=== PATIENT | male | born 1955 | race Caucasian/White ===

== ENCOUNTER 2018-07-04 10:04 | Observation (INO) | payer OTHER, SELFPAY ==
[2018-07-04 10:05] VITALS: BP 116/64; PULSE 105; RESP 16; TEMP 37.2; O2SAT 98; BMI 27.9
[2018-07-04 11:00] LABS: Bacteria 0 SEEN /hpf (None Seen); Mucous, Urine 0 SEEN /hpf (<or=2+); Red Blood Cells-Urine 0 SEEN /hpf (0-5); Squamous Epithelial Cells - UA 0 SEEN /hpf (0-5)
[2018-07-04 11:05] LABS: Color, Urine Amber (Yellow); Glucose, Dipstick Normal (Normal); Ketone-Dipstick 15 mg/dl (Negative); Leukocyte Esterase-Dipstick 500 /ul (Negative); Nitrite-Dipstick Positive (Negative); Occult Blood-Urine 250 /ul (Negative); Protein-Dipstick 100 mg/dl (Negative); Urine Bilirubin Dipstick 3 mg/dL (Negative); Urine Clarity Cloudy (Clear); Urine Urobilinogen 8 mg/dl (Normal)
[2018-07-04 11:09] LABS: White Blood Cells >100 SEEN /hpf (0-5)
[2018-07-04] MEDS: Ceftriaxone 1 GM/50 ML BAG IV (11:14)
[2018-07-04] MEDS: 0.9% Normal Saline 1,000 ML 1000 ML IV (11:14)
[2018-07-04 11:31] LABS: Absolute Lymphocyte Count 0.53 X10^3/ul (0.83-4.51); Absolute Neutrophil Count 15.3 X10^3/uL (2.0-7.7); Basophil# 0.01 X10^3/uL; Basophil% 0.1 % (0-1); Differential Indicated SCAN CRITERIA MET; Hematocrit 36.2 % (40-54); Hemoglobin 12.1 g/dl (13.0-16.5); Lymphocyte # 0.53 X10^3/ul (4.0); Lymphocyte % 3.2 % (19-41); Mean Corp Hgb Conc 33.4 g/gl (32-36); Mean Corpuscular Hgb 31.7 pg (27.0-32.0); Mean Corpuscular Volume 94.8 fL (80-94); Mean Platelet Vol. 10.1 fl (6.2-12.0); Monocyte# 0.64 X10^3/uL; Monocyte% 3.9 % (0-10); Neutrophil # 15.29 X10^3/uL (2.7-7.7); Neutrophil % 92.5 % (47-70); POSITIVE COUNT NO; POSITIVE DIFFERENTIAL YES; POSITIVE MORPHOLOGY NO; Platelet Count 161 K/mm3 (150-450); RBC Distribution Width SD 43.5 fl (35.1-43.9); Red Blood Count 3.82 M/mm3 (4.6-6.2); White Blood Count 16.5 K/mm3 (4.4-11.0)
[2018-07-04 11:39] LABS: Anion Gap 6 (5-15); BUN 21 mg/dL (7-18); BUN/Creat Ratio 17.9 RATIO (10-20); Calcium,Total 8.6 mg/dL (8.5-10.1); Chloride 104 mmol/L (98-107); Creatinine, Serum 1.17 mg/dL (0.70-1.30); EST Glomerular Filtration Rate 67 mL/min (>60); Est Glom Filt Rate - Afr Amer 81 mL/min (>60); Estimated Creatinine Clearance 70.93 ml/min; Glucose 106 mg/dL (74-106); Potassium 3.9 mmol/L (3.5-5.1); Sodium Level 137 mmol/L (136-145)
[2018-07-04] MEDS: Ondansetron 4 MG/2 ML Vial IV (11:41)
[2018-07-04 11:53] LABS: Lactic Acid 1.1 mmol/L (0.4-2.0)
--- NOTE | 2018-07-04 12:03 | ED.VISSUMM ---
- ER Visit Summary Date of Service: 07/04/18 Chief Complaint: [Dysuria] History of Present Illness: The patient is a 63 M [presents the emergency department with complaint of dysuria that started yesterday morning. Patient vomited ?2. He denies any back pain. Does complain of a headache. Patient had some mild diarrhea the last 2 days. Patient's had fever at home up to 101. Patient was seen at urgent care and referred to the emergency department. Patient had been on amoxicillin for a cough that he had and finished the amoxicillin about a week ago.] Physical Examination: [HEENT-PERRLA, EOMI. Cranial nerves II through XII grossly intact. TMs clear. Mucous membranes moist. No adenopathy. Cardiovascular-regular rate and rhythm without murmur or ectopy Lungs-clear to auscultation, chest wall stable without crepitus or subcu emphysema Abdomen-normoactive bowel sounds, soft, nontender, no rebound or rigidity, no peritoneal signs. No CVA tenderness. Extremities-intact ?4, normal range of motion, normal pulses, atraumatic] Test Results: [CBC with differential obtained showed a white count of 16.5, hemoglobin 12, hematocrit 36, platelets 161. Chemistries unremarkable. BUN was 21 creatinine 1.17. Urinalysis was positive for 500 leukocyte esterase, positive nitrites, greater than 100 WBCs. Urine culture was sent.] Emergency Department Course and Treatment: [Was given a liter normal same fluid bolus. Patient was given Zofran 4 mg IV. Patient was started on Rocephin 1 g IV.] Treatment Plan: [Patient will be admitted as he does meet sepsis criteria] Disposition: [Admit] Impression: [UTI Sepsis] This note was generated with [employer] dictation software. It may contain incorrect words, spelling, and punctuation that were not noted in review of the chart prior to signing ED Disposition - Plan for ED Patient: Chief Complaint: Complaint Referrals: Pato Suarez MD [Primary Care Provider] -
[2018-07-04 12:47] VITALS: BP 121/63; PULSE 98; RESP 18; O2SAT 99
[2018-07-04 13:11] VITALS: BMI 27.9
[2018-07-04 13:12] VITALS: BP 133/68; PULSE 108; RESP 18; TEMP 38.1; O2SAT 97
[2018-07-04 13:14] VITALS: BMI 28.0
--- NOTE | 2018-07-04 13:16 | PCM.HP.STD ---
Problem List (1) Right sided vestibular neuroma Status: Chronic (2) Anxiety Status: Chronic (3) UTI (urinary tract infection) Status: Acute History of Present Illness Date of Admission: 07/04/18 Chief Complaint: Fever with chills and low intact symptoms for few days The patient is a 63 year old M with history of right ear vestibular neuroma for which is a scheduled for gamma knife surgery in [facility] otherwise healthy came to ER with fever, chills, nausea and vomiting and lower urinary tract symptoms for few days. Patient complain of increased frequency, urgency, burning micturition, nocturia for about 2-3 days. He was noticed to have temperature 100.6?F, sinus tachycardia, leukocytosis with left shift but no tachypnea or hypoxia. UA is positive of pyuria, leukocyte esterase and nitrite. Blood cultures and urine culture have been drawn in ER. Patient saw Dr. Santiago in February 2018 for the concern of BPH and he had normal PSA at that time as per the patient and was told prostate is not significantly enlarged on P/R exam. But in our system, there is no recent PSA, last one October 2015 PSA was 3.45. He did not had recent urology procedure, Khan catheterization. Past Medical History Past Medical History (Chronic Problems): Chronic Problems Right sided vestibular neuroma (Chronic) Anxiety (Chronic) Allergies No Known Allergies Allergy (Verified 07/04/18 10:05) Home Medications: Ambulatory Orders Medication Instructions Recorded Lorazepam [Ativan] 0.5 mg PO PRN PRN 07/04/18 busPIRone [Buspar] 15 mg PO QHS 07/04/18 Smoking Status: Never smoker - *Family History Paternal History Items: No pertinent history Review of Systems Constitutional: Reports: Chills, Fever, Malaise, Weakness, Fatigue HEENT: Reports: Difficulty Hearing, Hearing Changes, - - Tinnitus. Denies: Head Aches, Sinus Congestion, Sinus Drainage Cardiovascular: Denies: Chest Pain, Palpitations Respiratory: Denies: Cough, Shortness of breath at rest, Sputum production Gastrointestinal: Denies: Abdominal Pain, Nausea, Vomiting Genitourinary: Reports: Dysuria, Frequency, Hesitancy, Nocturia, Urgency Musculoskeletal: Denies: Joint Pain, Joint Tenderness Skin: Denies: Rash, Wounds Neurological: Denies: Numbness, Tingling, Focal weakness Psychiatric: Denies: Anxiety, Depression, Homicidal Ideations, Suicidal Ideations Hematologic/ Lymphatic: Denies: Easy Bruising, Easy Bleeding VTE Information - Inpt Only VTE Present on Admission: No VTE Mechan Device Prophylaxis: None VTE Pharm Prophylaxis ordered?: Yes Patient Problems: Active and Suspected Problems UTI (urinary tract infection) (Acute) - Physical Exam General: Alert, Oriented x3, Cooperative HEENT: Atraumatic, PERRLA, EOMI, Normocephalic, - - Patient has difficulty in speech quality differentiation, tinnitus because of vestibular neuroma Neck: Supple, No JVD, Negative Carotid Bruits Lungs: Clear to auscultation, Normal air movement, No rhonchi, No wheeze, No rales Cardiovascular: Regular rate, Regular Rhythm, Normal S1, Normal S2, No murmurs Abdomen: Bowel Sounds Present, Soft, Non Tender, Non-Distended Extremities: No edema, Capillary Refill Less than 3 Seconds Skin: No rashes, No breakdown Musculoskeletal: No Tenderness to Palpation of Joints or Extremities Neurological: Cranial nerves II-XII grossly intact Psych/Mental Status: Normal Affect, Appropriate Vital Signs Temp Pulse Resp BP Pulse Ox 100.6 F H 108 H 18 133/68 H 97 07/04/18 13:12 07/04/18 13:12 07/04/18 13:12 07/04/18 13:12 07/04/18 13:12 Oxygen Delivery Method Room Air Weight: 206 lb 2.115 oz Body Mass Index (BMI) 27.9 Laboratory Tests Past 24 Hrs 07/04/18 07/04/18 07/04/18 10:26 10:26 10:26 WBC 16.5 H RBC 3.82 L Hgb 12.1 L Hct 36.2 L MCV 94.8 H MCH 31.7 MCHC 33.4 RDW 13.0 RDW Differential 43.5 Plt Count 161 MPV 10.1 Immature Gran % (Auto) 0.300 Neut % (Auto) 92.5 H Lymph % (Auto) 3.2 L [place] % (Auto) 3.9 Eos % (Auto) 0.0 Baso % (Auto) 0.1 Absolute Neuts (auto) 15.3 H Absolute Lymphs (auto) 0.53 L Total Counted Not Reportable Sodium 137 Potassium 3.9 Chloride 104 Carbon Dioxide 27.0 Anion Gap 6 BUN 21 H Creatinine 1.17 Estim Creat Clear Calc 70.93 Est GFR (MDRD) Af Amer 81 Est GFR (MDRD) Non-Af 67 BUN/Creatinine Ratio 17.9 Glucose 106 Lactic Acid 1.1 Calcium 8.6 Urine Color Urine Clarity Urine pH Ur Specific [place] Urine Protein Urine Glucose (UA) Urine Ketones Urine Occult Blood Urine Nitrite Urine Bilirubin Urine Urobilinogen Ur Leukocyte Esterase Urine RBC Urine WBC Ur Squamous Epith Cells Urine Bacteria Urine Mucus 07/04/18 10:53 WBC RBC Hgb Hct MCV MCH MCHC RDW RDW Differential Plt Count MPV Immature Gran % (Auto) Neut % (Auto) Lymph % (Auto) [place] % (Auto) Eos % (Auto) Baso % (Auto) Absolute Neuts (auto) Absolute Lymphs (auto) Total Counted Sodium Potassium Chloride Carbon Dioxide Anion Gap BUN Creatinine Estim Creat Clear Calc Est GFR (MDRD) Af Amer Est GFR (MDRD) Non-Af BUN/Creatinine Ratio Glucose Lactic Acid Calcium Urine Color [place] Urine Clarity Cloudy Urine pH 6.0 Ur Specific [place] 1.020 Urine Protein 100 H Urine Glucose (UA) Normal Urine Ketones 15 H Urine Occult Blood 250 H Urine Nitrite Positive H Urine Bilirubin 3 H Urine Urobilinogen 8 H Ur Leukocyte Esterase 500 H Urine RBC 0 SEEN Urine WBC >100 SEEN Ur Squamous Epith Cells 0 SEEN Urine Bacteria 0 SEEN Urine Mucus 0 SEEN Assessment/Plan All Active Problems UTI (urinary tract infection) (Acute) The patient is a 63 year old M with history of right ear vestibular neuroma for which is a scheduled for gamma knife surgery in [facility] otherwise healthy came to ER with fever, chills, nausea and vomiting and lower urinary tract symptoms for few days. Patient complain of increased frequency, urgency, burning micturition, nocturia for about 2-3 days. He was noticed to have temperature 100.6?F, sinus tachycardia, leukocytosis with left shift but no tachypnea or hypoxia. UA is positive of pyuria, leukocyte esterase and nitrite. Blood cultures and urine culture have been drawn in ER. Patient saw Dr. Santiago in February 2018 for the concern of BPH and he had normal PSA at that time as per the patient and was told prostate is not significantly enlarged on P/R exam. But in our system, there is no recent PSA, last one October 2015 PSA was 3.45. He did not had recent urology procedure, Khan catheterization. 1. SIRS (FEVER, temperature 100.6?F, sinus tachycardia, leukocytosis with left shift but no tachypnea or hypoxia) secondary to most probably, lower urinary tract infection: Patient is being admitted on the regular floor. IV fluid normal saline. Started on IV ceftriaxone and is being continued. Urine culture and blood culture have been sent. Kidneys and bladder ultrasound ordered to rule out pyelonephritis. Patient does not have renal tenderness. Suspicion/concern of BPH: Patient sometimes have nocturia about 2 times per night. The patient was given option of taking Flomax by Dr. Santiago but he chose not to take it. PSA and digital rectal exam is recommended when patient is on baseline and UTI is resolved. 2. Right-sided vestibular neuroma: Already scheduled for gamma knife surgery and [facility]. 3. Anxiety and chronic sinusitis: Patient is on BuSpar, Ativan and cephalexin at home. Home medication reconciliation done. DVT prophylaxis: On Lovenox 40 mils subcu daily. Code Visit Inpatient E&M: 85812 Init Hosp L2
--- NOTE | 2018-07-04 13:36 | US_ITS ---
US/Kidney and Bladder IMPRESSION: Simple right renal cyst. Electronically Signed: Duy Teresa MD at 14:56 EDT , Service support ,
[2018-07-04] MEDS: Acetaminophen 325 MG Tablet 650 MG PO ×2 (13:46→21:03)
[2018-07-04] MEDS: 0.9% Normal Saline 1,000 ML 150 ML IV (13:46)
[2018-07-04 15:53] VITALS: BP 111/52; PULSE 100; RESP 16; TEMP 38.5; O2SAT 95
[2018-07-04] MEDS: busPIRone 15 MG TABLET 30 MG PO (16:08)
[2018-07-04] MEDS: Enoxaparin 40 MG/0.4 ML Syringe SC (16:09)
[2018-07-04] MEDS: Loratadine 10 MG Tablet PO (16:12)
[2018-07-04 20:09] VITALS: BP 111/54; PULSE 99; RESP 16; TEMP 37.7; O2SAT 95
[2018-07-04 20:49] VITALS: PULSE 99; RESP 16; O2SAT 95
[2018-07-04] MEDS: 0.9% Normal Saline 1,000 ML 100 ML IV ×2 (20:56→21:23)
[2018-07-04] MEDS: busPIRone 15 MG TABLET PO (20:58)
[2018-07-04] MEDS: Phenazopyridine 95 MG Tablet 190 MG PO (21:00)
[2018-07-05 02:10] VITALS: BP 113/59; PULSE 83; RESP 16; TEMP 37.5; O2SAT 100
[2018-07-05] MEDS: Phenazopyridine 95 MG Tablet 190 MG PO ×2 (05:49→12:42)
[2018-07-05] MEDS: Acetaminophen 325 MG Tablet 650 MG PO (05:49)
[2018-07-05 06:32] LABS: Absolute Lymphocyte Count 0.74 X10^3/ul (0.83-4.51); Absolute Neutrophil Count 14.7 X10^3/uL (2.0-7.7); Basophil# 0.01 X10^3/uL; Basophil% 0.1 % (0-1); Hematocrit 32.9 % (40-54); Hemoglobin 10.7 g/dl (13.0-16.5); Lymphocyte # 0.74 X10^3/ul (4.0); Lymphocyte % 4.5 % (19-41); Mean Corp Hgb Conc 32.5 g/gl (32-36); Mean Corpuscular Hgb 30.8 pg (27.0-32.0); Mean Corpuscular Volume 94.8 fL (80-94); Mean Platelet Vol. 10.5 fl (6.2-12.0); Monocyte# 1.14 X10^3/uL; Monocyte% 6.9 % (0-10); Neutrophil # 14.69 X10^3/uL (2.7-7.7); Neutrophil % 88.3 % (47-70); Platelet Count 119 K/mm3 (150-450); RBC Distribution Width CV 13.4 % (11.6-14.6); RBC Distribution Width SD 46.4 fl (35.1-43.9); Red Blood Count 3.47 M/mm3 (4.6-6.2); White Blood Count 16.6 K/mm3 (4.4-11.0)
[2018-07-05 06:44] LABS: POSITIVE COUNT NO; POSITIVE DIFFERENTIAL NO; POSITIVE MORPHOLOGY NO
[2018-07-05] MEDS: 0.9% Normal Saline 1,000 ML 100 ML IV (06:56)
[2018-07-05 08:26] LABS: Hemoglobin A1c 4.9 % (4.2-6.3)
[2018-07-05 09:19] VITALS: BP 110/61; PULSE 77; RESP 18; TEMP 36.7; O2SAT 97
[2018-07-05] MEDS: busPIRone 15 MG TABLET 30 MG PO (09:21)
[2018-07-05] MEDS: Loratadine 10 MG Tablet PO (09:21)
[2018-07-05] MEDS: Enoxaparin 40 MG/0.4 ML Syringe SC (09:22)
[2018-07-05] MEDS: Ceftriaxone 1 GM/50 ML BAG IV (09:22)
[2018-07-05] MEDS: Polyethylene Glycol 3350 17 GM PACKET PO (09:22)
[2018-07-05] MEDS: busPIRone 15 MG TABLET PO (12:42)
--- NOTE | 2018-07-05 12:43 | PCM.DC ---
- Discharge Diagnoses Current Active Problems: Current Active and Chronic Problems Right sided vestibular neuroma (Chronic) Anxiety (Chronic) UTI (urinary tract infection) (Acute) You will use the following diet at home:: Regular Call your doctor if you observe: Fever of 101 or Higher, Inability to urinate Additional Instructions: Advised to keep apointment with [facility], [facility] ENT apointment for gammaknife rad for right vestibular neuroma Allergies/Adverse Reactions: Allergies No Known Allergies Allergy (Verified 07/04/18 10:05) Medications to take at Discharge Lorazepam [Ativan] 0.5 mg PO PRN PRN 07/04/18 busPIRone [Buspar] 15 mg PO LUNCH 07/04/18 busPIRone [Buspar] 15 mg PO QHS 07/04/18 busPIRone [Buspar] 30 mg PO BREAKFAST 07/04/18 Cefadroxil [Duracef] 500 mg PO BID #10 cap 07/05/18 Cetirizine HCl [Zyrtec] 10 mg PO DAILY PRN PRN #0 07/05/18 Lactobacillus Acidophilus [Acidophilus] 1 tablet PO TID 7 Days tablet 07/05/18 The following prescriptions were given: Cefadroxil [Duracef] 500 mg PO BID #10 cap Primary Care Physician: Pato Suarez MD [Primary Care Provider] - Please follow up with your Primary Care Physician in: in 1 WEEK for Urine C&S and CBC Test Results: Test results from this visit will be discussed in further detail at your follow-up appointment, if applicable. Please Follow Up With: Martin Santiago MD When: in 4 WEEK for possible BPH and UTI
--- NOTE | 2018-07-05 12:47 | PCM.DC.SUM ---
Discharge Date and Diagnosis - Problem List Patient Problems: Active and Suspected Problems UTI (urinary tract infection) (Acute) Date of Admission: 07/04/18 Date of Discharge: 07/05/18 - Primary Discharge Diagnosis Active and Suspected Problems SIRS WITH Sepsis secondary to Ecoli UTI Suspicion/concern of BPH Right-sided vestibular neuroma - Secondary Discharge Diagnosis Chronic Problems Right sided vestibular neuroma (Chronic) Anxiety (Chronic) Hospital Course and Treatment Summary of Care Provided: [] The patient is a 63 year old M with history of right ear vestibular neuroma for which is a scheduled for gamma knife surgery in [facility] otherwise healthy came to ER with fever, chills, nausea and vomiting and lower urinary tract symptoms for few days. Patient complain of increased frequency, urgency, burning micturition, nocturia for about 2-3 days. He was noticed to have temperature 100.6?F, sinus tachycardia, leukocytosis with left shift but no tachypnea or hypoxia. UA is positive of pyuria, leukocyte esterase and nitrite. Blood cultures and urine culture have been drawn in ER. Patient saw Dr. Santiago in February 2018 for the concern of BPH and he had normal PSA at that time as per the patient and was told prostate is not significantly enlarged on P/R exam. But in our system, there is no recent PSA, last one October 2015 PSA was 3.45. He did not had recent urology procedure, Khan catheterization. General: Alert, Oriented x3, Cooperative HEENT: Atraumatic, PERRLA, EOMI, Normocephalic, Patient has difficulty in speech quality differentiation, tinnitus because of right vestibular neuroma Neck: Supple, No JVD, Negative Carotid Bruits Lungs: Clear to auscultation, Normal air movement, No rhonchi, No wheeze, No rales Cardiovascular: Regular rate, Regular Rhythm, Normal S1, Normal S2, No murmurs Abdomen: Bowel Sounds Present, Soft, Non Tender, Non-Distended Extremities: No edema, Capillary Refill Less than 3 Seconds Skin: No rashes, No breakdown Musculoskeletal: No Tenderness to Palpation of Joints or Extremities Neurological: Cranial nerves II-XII grossly intact Psych/Mental Status: Normal Affect, Appropriate 1. SIRS (FEVER, temperature 100.6?F, sinus tachycardia, leukocytosis with left shift but no tachypnea or hypoxia) secondary to most probably, lower urinary tract infection: Patient is being admitted on the regular floor. IV fluid normal saline. Started on IV ceftriaxone and is being continued. Preliminary urine culture reported as E. coli more than 100,000 colonies per mL. Full culture and sensitivity not available until next 24 hours and patient wants to go home. Based on [facility] antibiogram, patient is given a prescription of cefadroxil 500 mg twice daily for 5 more days. Patient advised to follow-up cultures and sensitivity with PCP in 1 week. Patient also has leukocytosis and prescription given for outpatient CBC follow with PCP. Kidney and bladder ultrasound reported as 1.8 cm right simple renal cyst. Total prostate volume 81.3 cc. Normal wall thickness of distended urinary bladder with no demonstrated mass or urinary tract calculi. Patient does not have renal tenderness. Suspicion/concern of BPH: Patient sometimes have nocturia about 2 times per night. The patient was given option of taking Flomax by Dr. Santiago but he chose not to take it. PSA and digital rectal exam is recommended when patient is on baseline and UTI is resolved. Patient agreed to take Flomax and a prescription given for Flomax. 2. Right-sided vestibular neuroma: Already scheduled for gamma knife surgery and [facility]. Patient has an appointment next week in order advised to keep up with appointment. 3. Anxiety and chronic sinusitis: Patient is on BuSpar, Ativan and cephalexin at home. Discharge medication reconciliation done. DVT prophylaxis: On Lovenox 40 milligrams subcut daily . Discharge medication reconciliation done. Advised to follow with PCP in [address] Santiago about 4 weeks. Total time spent, exact 35 minutes on discharge meds reconciliation, examination, review of imaging and blood test and discussion with the patient on follow-up instructions. Clinical Impression(s) from Imaging Studies Renal Ultrasound 07/04/18 13:36 IMPRESSION: Simple right renal cyst. Electronically Signed: Duy Teresa MD at 14:56 EDT , Service support , Call your doctor if you observe: Fever of 101 or Higher, Inability to urinate Home Medications: Medications to take at Discharge Lorazepam [Ativan] 0.5 mg PO PRN PRN 07/04/18 busPIRone [Buspar] 15 mg PO LUNCH 07/04/18 busPIRone [Buspar] 15 mg PO QHS 07/04/18 busPIRone [Buspar] 30 mg PO BREAKFAST 07/04/18 Cefadroxil [Duracef] 500 mg PO BID #10 cap 07/05/18 Cetirizine HCl [Zyrtec] 10 mg PO DAILY PRN PRN #0 07/05/18 Lactobacillus Acidophilus [Acidophilus] 1 tablet PO TID 7 Days tablet 07/05/18 Tamsulosin HCl [Flomax] 0.4 mg PO DAILY #30 cap.er.24h 07/05/18 Following Prescrptions Were Given to Patient: Tamsulosin HCl [Flomax] 0.4 mg PO DAILY #30 cap.er.24h Cefadroxil [Duracef] 500 mg PO BID #10 cap Primary Care Physician: Pato Suarez MD [Primary Care Provider] - Please follow up with your Primary Care Physician in: in 1 WEEK for Urine C&S and CBC Please Follow Up With: Martin Santiago MD When: in 4 WEEK for possible BPH and UTI Medical Necessity - Tobacco Use Smoking Status: Never smoker Meaningful Use Info Meaningful Use Diagnoses (Choose all that apply): None applicable Code Visit Inpatient E&M: 94726 Disch Hosp
== END 2018-07-05 14:10 | disposition home or self-care (01) ==
LOC: ED 11:01 → MS3 12:51
PROVIDERS: Admitting Provider Internal Medicine; Emergency Provider Emergency Medicine; Family Provider Family Medicine; PCP Family Medicine; Visit Provider Internal Medicine
DX: A41.9 Sepsis, unspecified organism (principal); N39.0 Urinary tract infection, site not specified; B96.20 Unspecified Escherichia coli [E. coli] as the cause of diseases classified elsewhere; Z79.899 Other long term (current) drug therapy; D36.11 Benign neoplasm of peripheral nerves and autonomic nervous system of face, head, and neck; F41.9 Anxiety disorder, unspecified; J32.9 Chronic sinusitis, unspecified
CPT/HCPCS: 36415; 76770; 80048; 81001; 83036; 83605; 85025; 87040; 87086; 87088; 87186; 87804; 96361; 96365; 96366; 96372; 96375; 99218; 99285; J7030; A4216; G0378; J2405

== ENCOUNTER → 2018-08-17 16:30 | Outpatient (CLI) | payer OTHER, SELFPAY | PROVIDERS: Family Provider Family Medicine; PCP Family Medicine; Referring Provider Urology; Visit Provider Urology | DX: R82.998 Other abnormal findings in urine (principal) | CPT/HCPCS: 87077; 87086; 87088; 87186 ==

== ENCOUNTER 2019-07-11 19:46 | Observation (INO) | payer OTHER, SELFPAY ==
[2019-07-11 19:47] VITALS: BP 124/78; PULSE 69; RESP 19; TEMP 36.7; O2SAT 97; BMI 28.9
--- NOTE | 2019-07-11 19:58 | ED.RN ---
PATIENT HAS NO OLD EKGS
--- NOTE | 2019-07-11 20:15 | RAD_ITS ---
STUDY: X-RAY CHEST REASON FOR EXAM: Male, 64 years old. Chest pain TECHNIQUE: Single frontal view of the chest. COMPARISON: 11/22/2014 FINDINGS: The lungs are clear and expanded. There is no demonstrated pleural abnormality. Normal size heart. Normal mediastinum and skip. Normal visualized pulmonary arteries. Normal visualized aortic arch and descending thoracic aorta. Normal visualized thoracic spine. Normal visualized ribs, clavicles, and shoulders. There is no demonstrated abnormality of the visualized soft tissue structures of the upper abdomen. RAD/Chest 1 View (Portable) IMPRESSION: Normal x-ray examination of the chest. Electronically Signed: Pato Perez MD at 20:42 EDT Tel , Service support ,
--- NOTE | 2019-07-11 20:15 | EKG12_ITS ---
Test Reason : CP ADMIT Blood Pressure : / mmHG Vent. Rate : 060 BPM Atrial Rate : 060 BPM P-R Int : 246 ms QRS Dur : 142 ms QT Int : 444 ms P-R-T Axes : -12 -10 015 degrees QTc Int : 444 ms Sinus rhythm with 1st degree A-V block Right bundle branch block Abnormal ECG Confirmed by KRISH BARILLAS, TRE ([id number]), desk editor RUFINA SAUL ([id number]) on 07/14/2019 12:56:57 PM Referred By: DR CUTLER Confirmed By:TRE RUTHERFORD MD
[2019-07-11 20:46] VITALS: BP 121/70; PULSE 67; RESP 13; O2SAT 98
[2019-07-11 20:56] LABS: Absolute Lymphocyte Count 1.22 X10^3/uL (0.83-4.51); Absolute Neutrophil Count 7.2 X10^3/uL (2.0-7.7); Basophil# 0.05 X10^3/uL; Basophil% 0.5 % (0-1); Eosinophils% 2.1 % (0-5); Hematocrit 39.3 % (40-54); Hemoglobin 13.2 g/dL (13.0-16.5); Lymphocyte # 1.22 X10^3/ul (4.0); Lymphocyte % 12.7 % (19-41); Mean Corp Hgb Conc 33.6 g/dL (32-36); Mean Corpuscular Hgb 31.7 pg (27.0-32.0); Mean Corpuscular Volume 94.2 fL (80-94); Mean Platelet Vol. 10.3 fl (6.2-12.0); Monocyte% 9.4 % (0-10); NRBC Flagged by Analyzer 0 % (0-5); Platelet Count 189 K/mm3 (150-450); RBC Distribution Width CV 12.6 % (11.6-14.6); RBC Distribution Width SD 43.6 fl (35.1-43.9); Red Blood Count 4.17 M/mm3 (4.6-6.2); White Blood Count 9.6 K/mm3 (4.4-11.0)
[2019-07-11 21:00] VITALS: BP 141/74; PULSE 62; RESP 16; O2SAT 98
[2019-07-11 21:17] LABS: BUN 24 mg/dL (7-18); Creatinine, Serum 1.09 mg/dL (0.70-1.30); Glucose 93 mg/dL (74-106)
[2019-07-11 21:18] LABS: Anion Gap 7 (5-15); Calcium,Total 8.8 mg/dL (8.5-10.1); Chloride 110 mmol/L (98-107); EST Glomerular Filtration Rate 72 mL/min (>60); Est Glom Filt Rate - Afr Amer 88 mL/min (>60); Estimated Creatinine Clearance 75.15 ml/min; Potassium 3.7 mmol/L (3.5-5.1); Sodium Level 142 mmol/L (136-145)
--- NOTE | 2019-07-11 21:41 | ED.VISSUMM ---
- ER Visit Summary Date of Service: 07/11/19 Chief Complaint: Chest pain History of Present Illness: The patient is a 64 M with chest pain that started about an hour prior to arrival. The patient was working in the yard today. He was also lifting weights. He had a sudden onset of retrosternal chest pain that lasted about 10 minutes. He felt like he was going to pass out. He was sweaty and nauseated. He never had this before. He took aspirin and the symptoms seem to be improving. Family history of coronary disease. Prior smoker. Physical Examination: Afebrile and vital signs unremarkable. Heart regular rate and rhythm. Lungs clear. Abdomen soft. Extremities nontender with good pulses. Normal skin color. No diaphoresis. Test Results: EKG showed sinus rhythm at a rate of 62 with a right bundle branch block pattern. First-degree AV block. CBC, metabolic panel, troponin unremarkable. Chest x-ray normal. Emergency Department Course and Treatment: Patient symptoms were concerning for angina. He has some risk factors and concerning symptoms. His EKG and troponin were unremarkable. He received aspirin prior to arrival. He is symptom-free at this time. Given his age and risk factors, I contacted the hospitalist for observation. Treatment Plan: As above Disposition: Admission Impression: 1. Chest pain This note was generated with [employer] dictation software. It may contain incorrect words, spelling, and punctuation that were not noted in review of the chart prior to signing ED Disposition - Plan for ED Patient: Referrals: Pato Suarez MD [Primary Care Provider] -
[2019-07-11 22:00] VITALS: BP 138/72; PULSE 65; RESP 14; O2SAT 98
--- NOTE | 2019-07-11 22:18 | HP.PCM_ITS ---
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 He describes his pain as a feeling of indigestion and tightness. The pain radiated to his abdomen. Patient took 2 aspirins. The pain went away by self and is unclear whether it was as productive his pain away. Associated with his symptoms is nausea, and presyncope. His chest pain began while he was cleaning his golf carts and after doing some yard work. Importantly his father from heart attack at age 69. His father had a first heart attack at age 42. Patient had a stress test when he was in 40s. Reportedly patient had a stress test when he was in his 40s. Past Medical History Past Medical History (Chronic Problems): Chronic Problems Right sided vestibular neuroma (Chronic) Anxiety (Chronic) Allergies No Known Allergies Allergy (Verified 07/04/18 10:05) Home Medications: Ambulatory Orders Medication Instructions Recorded Lorazepam [Ativan] 0.5 mg PO PRN PRN 07/04/18 Tamsulosin HCl [Flomax] 0.4 mg PO DAILY #30 cap.er.24h 07/05/18 Triamcinolone Acetonide [Nasacort 1 spray NASAL BID 07/11/19 Aq Nasal [place]] busPIRone [Buspar] 15 mg PO 4X/DAY 07/11/19 Surgical History: herniorrhaphy, - - R ankle surgery Lives: Spouse/ Significant Other Smoking Status: Never smoker Alcohol: Occasional - *Family History Paternal History Items: Heart Disease - His father had his first heart attack at age 42. His father from heart attack at age 69. Maternal History Items: - - His mother is 90 years old and She has macular degeneration. Review of Systems Constitutional: Denies: Chills, Fever, Weight Change HEENT: Denies: Head Aches, Sinus Congestion, Sinus Drainage Cardiovascular: Reports: Chest Pain. Denies: Palpitations Respiratory: Reports: Shortness of Breath. Denies: Cough Gastrointestinal: Reports: Abdominal Pain, Nausea. Denies: Vomiting Genitourinary: Denies: Dysuria Musculoskeletal: Denies: Joint Pain, Joint Tenderness Skin: Denies: Rash, Wounds Neurological: Denies: Numbness, Tingling, Focal weakness Psychiatric: Denies: Anxiety, Depression, Homicidal Ideations, Suicidal Ideations Hematologic/ Lymphatic: Denies: Easy Bruising, Easy Bleeding VTE Information - Inpt Only VTE Present on Admission: No VTE Mechan Device Prophylaxis: None VTE Pharm Prophylaxis ordered?: Yes Patient Problems: Active and Suspected Problems Chest pain (Acute) - Physical Exam General: Alert, Oriented x3, Cooperative HEENT: Atraumatic, PERRLA, EOMI, Normocephalic Neck: Supple, No JVD, Negative Carotid Bruits Lungs: Clear to auscultation, Normal air movement Cardiovascular: Regular rate, No murmurs Abdomen: Bowel Sounds Present, Soft, Non Tender Extremities: No edema, Capillary Refill Less than 3 Seconds Skin: No rashes, No breakdown Musculoskeletal: No Tenderness to Palpation of Joints or Extremities Neurological: Cranial nerves II-XII grossly intact - Reportedly he has right hearing loss Psych/Mental Status: Normal Affect, Appropriate Vital Signs Temp Pulse Resp BP Pulse Ox 98.1 F 65 14 138/72 H 98 07/11/19 19:47 07/11/19 22:00 07/11/19 22:00 07/11/19 22:00 07/11/19 22:00 Oxygen Delivery Method Room Air Weight: 96.8 kg Body Mass Index (BMI) 28.9 Laboratory Tests Past 24 Hrs 07/11/19 07/11/19 20:45 20:45 WBC 9.6 RBC 4.17 L Hgb 13.2 Hct 39.3 L MCV 94.2 H MCH 31.7 MCHC 33.6 RDW Std Deviation 43.6 RDW Coeff of Roge 12.6 Plt Count 189 MPV 10.3 Immature Gran % (Auto) 0.300 Neut % (Auto) 75.0 H Lymph % (Auto) 12.7 L [place] % (Auto) 9.4 Eos % (Auto) 2.1 Baso % (Auto) 0.5 Absolute Neuts (auto) 7.2 Absolute Lymphs (auto) 1.22 Nucleated RBC % 0 Sodium 142 Potassium 3.7 Chloride 110 H Carbon Dioxide 25.0 Anion Gap 7 BUN 24 H Creatinine 1.09 Estim Creat Clear Calc 75.15 Est GFR (MDRD) Af Amer 88 Est GFR (MDRD) Non-Af 72 BUN/Creatinine Ratio 22.0 H Glucose 93 Calcium 8.8 Troponin I < 0.015 Assessment/Plan All Active Problems Chest pain (Acute) The patient is a 64 year old M with a significant history of 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 Chest pain Admit to a monitored bed on PCU CXR independently reviewed confirms no acute cardiopulmonary process. EKG independently reviewed confirms first-degree AV block with right bundle branch block. ASA 81 mg p.o. daily SL NTG 0.4 mg prn as needed for chest pain Morphine as needed for pain Antiemetics with PRN Zofran IV. We will check lipid panel. Serial cardiac enzymes Stat EKG as needed for chest pain Chemical stress test in the AM if the cardiac enzymes are negative. Of note patient has had right ankle surgery and will not be a good candidate for a treadmill stress test. Acoustic neuroma with right hearing loss and dizziness Status post gamma knife radiation Patient to continue follow up with [facility]. Anxiety disorder Scheduled buspirone and Ativan as needed continued DVT prophylaxis Subcutaneous Lovenox Code Visit OBSV E&M: [id number] Initial observation care L3
[2019-07-11 22:56] VITALS: BMI 28.5
[2019-07-11 23:00] VITALS: BP 147/54; BP 148/53; PULSE 65; RESP 20; TEMP 36.7; O2SAT 97
[2019-07-11 23:23] VITALS: BMI 28.6
[2019-07-11 23:29] VITALS: PULSE 70
--- NOTE | 2019-07-11 23:34 | EKG12_ITS ---
Test Reason : CP Blood Pressure : / mmHG Vent. Rate : 062 BPM Atrial Rate : 062 BPM P-R Int : 242 ms QRS Dur : 136 ms QT Int : 428 ms P-R-T Axes : 080 -07 043 degrees QTc Int : 434 ms Sinus rhythm with marked sinus arrhythmia with 1st degree A-V block Right bundle branch block Abnormal ECG Confirmed by KRISH BARILLAS, TRE ([id number]), manuscript editor RUFINA SAUL ([id number]) on 07/14/2019 11:50:12 AM Referred By: JACKY Confirmed By:TRE RUTHERFORD MD
[2019-07-12] VITALS (12 sets, daily range): BP systolic 110–150; BP diastolic 53–78; PULSE 59–87; RESP 16–18; TEMP 36.6–37; O2SAT 95–100
[2019-07-12] MEDS: busPIRone 15 MG TABLET PO ×4 (00:05→14:59)
[2019-07-12 03:17] LABS: Cholesterol 169 mg/dL (200); High Density Lipoprotein 39 mg/dL; Triglycerides 103 mg/dL; Very Low Density Lipoprotein 21 mg/dL (5-40)
--- NOTE | 2019-07-12 05:30 | EKG12_ITS ---
Test Reason : AM EKG Blood Pressure : / mmHG Vent. Rate : 059 BPM Atrial Rate : 059 BPM P-R Int : 264 ms QRS Dur : 138 ms QT Int : 458 ms P-R-T Axes : 006 -11 007 degrees QTc Int : 453 ms Sinus bradycardia with 1st degree A-V block Right bundle branch block Abnormal ECG Confirmed by KRISH BARILLAS, TRE ([id number]), editor dictionary RUFINA SAUL ([id number]) on 07/14/2019 12:56:02 PM Referred By: DR CUTLER Confirmed By:TRE RUTHERFORD MD
[2019-07-12] MEDS: Aspirin E.C. 81 MG Tablet PO (05:39)
[2019-07-12] MEDS: Tamsulosin HCl 0.4 MG Capsule PO (10:26)
--- NOTE | 2019-07-12 10:47 | STRESSREP ---
Stress Test Report Exercise myocardial perfusion stress test. 64-year-old man with a history of chest pain. Medications aspirin, Flomax. Stress protocol: Resting EKG demonstrates normal sinus rhythm with a rate of 58 bpm first-degree AV block right bundle branch block is noted. The patient exercised according to regular [employer] protocol for total duration of 7 minutes and 50 seconds. The patient completed 1 minute and 50 seconds to stage III of the [employer] protocol to maximum heart rate attained 151 bpm which was 96% of maximum predicted heart rate and maximum workload was 9.8 metabolic equivalents. There were no ST or T wave changes noted suggest ischemia. The patient however was noted to have nonsustained wide-complex tachyarrhythmias suggestive of ventricular tachycardia. The above was asymptomatic. No chest pain was noted the test was terminated due to leg fatigue. The resting blood pressure 138/76 with a peak blood pressure 160/72. No clinical angina was noted per Myocardial perfusion protocol. 14.1 mCi of technetium 99m sestamibi was injected at rest. The patient exercised a conservative [employer] protocol for 7 minutes and 50 seconds at peak exercise 44.3 mCi of technetium 99m sestamibi was injected stress images were obtained stress and rest images are reconstructed in comparing the short axis vertical and horizontal long axis. Gated images was obtained PACS Perfusion SPECT analysis: Review of the images demonstrate a mild reduction of perfusion noted in the distal anterior wall and apex. The resting images demonstrate a mild amount of improvement suggestive of mild anterior ischemia. The gated ejection fraction was 65%. No previous infarct is noted. Conclusion: Exercise myocardial perfusion stress test with mild anterior ischemia. Nonsustained ventricular tachycardia noted. Preserved ejection fraction.
--- NOTE | 2019-07-12 11:04 | CASEMGMT ---
According to the [employer] website, the following are in-network tertiary facilities: [facility], [place], [facility], [facility], [facility], [facility], [facility], [place], [facility], and . Sean HEIN CM
--- NOTE | 2019-07-12 11:16 | CON.PCM_ITS ---
Reason for Consult Date of Consultation: 07/12/19 Reason for Consultation: Chest discomfort History of Present Illness: The patient is a 64 year old M with no previous cardiac history who over the weekend was working outside and suddenly had chest discomfort described as a cramp-like sensation which lasted a few minutes. There was no radiation of this discomfort but it was significant enough for him to get diaphoretic and slightly nauseated. He went inside took some aspirin and then called 911 by the time of which it dissipated. He presented to the emergency room was evaluated his EKG was noted to be normal he ruled out for myocardial infarction. He underwent stress testing today where he exercised over 7 minutes without any chest discomfort. He was however noted to have nonsustained ventricular tachycardia. The nuclear images demonstrated evidence of possible mild anterior ischemia. Cardiology was consulted for further evaluation and management. Not had any chest discomfort since admission to the hospital. He has had no dizziness or diaphoresis no near syncope or syncope. He says he was told that he had a right bundle branch block. [] Past Medical History Allergies/Adverse Reactions: Allergies No Known Allergies Allergy (Verified 07/04/18 10:05) Home Medications: Ambulatory Orders Medication Instructions Recorded Lorazepam [Ativan] 0.5 mg PO PRN PRN 07/04/18 Tamsulosin HCl [Flomax] 0.4 mg PO DAILY #30 cap.er.24h 07/05/18 Triamcinolone Acetonide [Nasacort 1 spray NASAL BID 07/11/19 Aq Nasal [place]] busPIRone [Buspar] 15 mg PO 4X/DAY 07/11/19 Past Medical History (Chronic Problems): Chronic Problems Right sided vestibular neuroma (Chronic) Anxiety (Chronic) Surgical History: herniorrhaphy, - - R ankle surgery - *Family History Paternal History Items: Heart Disease - His father had his first heart attack at age 42. His father from heart attack at age 69. Maternal History Items: - - His mother is 90 years old and She has macular degeneration. Lives: Spouse/ Significant Other Smoking Status: Never smoker Alcohol: Occasional Drugs: None Review of Systems - Review of Systems General: Denies: Fever, Night Sweats, Fatigue HEENT: Denies: Vision Change Cardiovascular: Reports: Chest Discomfort. Denies: Shortness of Breath, Orthopnea, PND, Peripheral Edema, Palpitations, Lightheadedness, Dizziness, Near Syncope, Syncope Respiratory: Denies: Cough, Sputum Production, Hemoptysis Gastrointestinal: Denies: Hematemesis, Hematochezia, Melena Genitourinary: Denies: Dysuria, Hematuria Muscoloskeletal: Denies: Myalgias Skin: Denies: Rash Neurological: Reports: Dizziness Psychiatric: Reports: Anxiety Endocrine: Denies: Unexplained Weight Loss Hematologic/ Lymphatic: Denies: Anemia Subjectve: Pleasant gentleman in no apparent distress looks slightly anxious Objective: Vital Signs Temp Pulse Resp BP Pulse Ox 98.2 F 63 16 140/76 H 95 07/12/19 05:00 07/12/19 05:59 07/12/19 05:00 07/12/19 05:00 07/12/19 11:02 Oxygen Delivery Method Room Air Weight: 210 lb 12.191 oz Body Mass Index (BMI) 28.5 Intake and Output for Last 24 Hours 07/10/19 07/11/19 07/12/19 23:59 23:59 23:59 Intake Total 100 / 100 Balance 100 / 100 General: Awake, Alert, Oriented x 3 HEENT: PERRL, EOMI, Sclera Non Icteric Neck: Supple, Good ROM, No Lymph Node Enlargement Lungs: Clear to auscultation Cardiovascular: Regular Rhythm, Normal S1, Normal S2, No Murmurs, No Rubs, No Gallops Vascular: No Carotid Bruits, Normal Femoral Pulses, Normal Radial Pulses, Normal Dorsalis Pedal Pulse, Normal Posterior Tibial Pulses Abdomen: Bowel Sounds Present, Soft, Non Tender, No HSM, No Organomegaly Extremities: No Cyanosis, No Clubbing, No edema Musculoskeletal: No Erythema Skin: No Rashes Lymphatic: No Lymph Node Enlargement Neurological: No Focal Motor or Sensory Deficit Psych/Mental Status: Appropriate 07/11/19 20:45: WBC 9.6, RBC 4.17 L, Hgb 13.2, Hct 39.3 L, MCV 94.2 H, MCH 31.7, MCHC 33.6, Plt Count 189, MPV 10.3, Immature Gran % (Auto) 0.300, Neut % (Auto) 75.0 H, Lymph % (Auto) 12.7 L, [place] % (Auto) 9.4, Eos % (Auto) 2.1, Baso % (Auto) 0.5, Absolute Neuts (auto) 7.2, Nucleated RBC % 0 07/11/19 20:45: Sodium 142, Potassium 3.7, Chloride 110 H, Carbon Dioxide 25.0, Anion Gap 7, BUN 24 H, Creatinine 1.09, Est GFR (MDRD) Af Amer 88, Est GFR (MDRD) Non-Af 72, BUN/Creatinine Ratio 22.0 H, Glucose 93, Calcium 8.8, Troponin I < 0.015 07/11/19 23:50: Troponin I < 0.015 07/12/19 02:45: Triglycerides 103, Cholesterol 169, LDL Cholesterol 109, VLDL Cholesterol 21, HDL Cholesterol 39 L 07/12/19 02:45: Troponin I < 0.015 Rhythm: EKG: Sinus rhythm with a first-degree AV block and a right bundle branch block ECHO: Stress Test: Nonsustained ventricular tachycardia noted during the stress test with evidence of mild anterior ischemia Assessment/Plan 1. Chest pain with abnormal stress test * Patient presents with chest discomfort and is noted to have an abnormal stress test. The above especially with a nonsustained ventricular tachycardia is concerning and I have discussed this with the patient. The risk benefits and alternatives have been explained to him and it appears that the better approach would be to proceed with a cardiac catheterization. Depending on the results further recommendations will be made. * * Thank you for allowing me to participate in the care of your patient. Please don't hesitate to call if any issues arise * * Addendum: Cardiac catheterization demonstrated nonobstructive coronary disease. Preserved ejection fraction was noted. Patient was noted to be mildly hypertensive and would recommend treatment with lisinopril. Follow-up with primary physician.
[2019-07-12] MEDS: 0.9% Normal Saline 1,000 ML 75 ML IV (11:26)
--- NOTE | 2019-07-12 12:37 | CL.D_ITS ---
Patient Name: MIKEL NIXON Study Date: 07/12/2019 Performing: Mohamud Brock MD Ht: 72.04 inches 183 cm : 1955 Wt: 211.64 lbs 96 kg Age: 64 Gender: male BSA: 2.18 PROCEDURE(S) PERFORMED NA39-HUW/COR/LV CLINICAL PROFILE AND INDICATIONS Indications: Suspected CAD, Cardiac Arrythmia Heart Failure: None Stress/Imaging Date: 07/12/2019Stress Test with SPECT MPI: Positive Low Risk CAD Presentations: Unstable angina. CONCLUSIONS Normal coronary arteries Myocardial bridging RECOMMENDATIONS Medical therapy DESCRIPTION OF PROCEDURE The patient arrived to the procedure lab. The risks and benefits of the procedure as well as a full d escription of our services here and current unavailability of surgical backup were fully explained to the patient and/or their significant other prior to the catheterization. The Timeout was completed, verifying the correct patient and procedure. The patient's procedural site was prepped and draped in the usual fashion. Local anesthetic was given subcutaneously to right radial region with Lidocaine 2% . Using a modified Seldinger technique, arterial access was obtained via the right radial artery, a 6 Fr sheath was inserted. Right Coronary Artery selective angiography was then performed in multiple v iews using a 5 Fr. 4.0 [place] catheter. Left Coronary Artery selective angiography was performed in mu ltiple views using a 5 Fr. 4.0 [place] catheter. Left Ventriculography was performed in REMY projection using a 5 Fr. [place] catheter. LV to AO pullback pressures were then recorded.The arterial sheath was pulled and a TR Band was applied for hemostasis CORONARY ANGIOGRAPHY DOMINANCE: Right Dominant LEFT HEART ASSESSMENT Left Ventricular Ejection Fraction: by LV Gram 60 % Normal LV wall motion Normal Left Ventricular systolic function LEFT MAIN: Angiographically normal LEFT ANTERIOR DESCENDING ARTERY: Angiographically normal MID LAD: Myocardial bridging CIRCUMFLEX ARTERY: Angiographically normal RIGHT CORONARY ARTERY: Angiographically normal COMPLICATIONS No Complications PROCEDURE MEDICATIONS Versed 1 mg IV Fentanyl 50 mcg IV Oxygen: 2 L/min via nasal cannula SUMMARY OF HEMODYNAMIC DATA Time AIR REST ECG 11:45:25 AO 134/80 (104) SA 12:11:54 LV 118/9, 13 12:24:06 LV 122/9, 13 12:24:13 LV 133/-3, 14 12:24:58 LVp 134/-2, 15 12:25:02 AO 131/58 (92) 12:25:07 Signed By Mohamud Brock MD On 07/12/2019 12:36:24 Mohamud Brock MD
--- NOTE | 2019-07-12 12:50 | PCM.DC ---
- Discharge Diagnoses Current Active Problems: Current Active and Chronic Problems Chest pain (Acute) You will use the following diet at home:: Cardiac Your food should be the consistency of: Regular Your liquids should be the consistency of: Regular/Thin Discharge Activity: Return to Normal Activity Allergies/Adverse Reactions: Allergies No Known Allergies Allergy (Verified 07/04/18 10:05) Medications to take at Discharge Lorazepam [Ativan] 0.5 mg PO PRN PRN 07/04/18 Tamsulosin HCl [Flomax] 0.4 mg PO DAILY #30 cap.er.24h 07/05/18 Triamcinolone Acetonide [Nasacort Aq Nasal [place]] 1 spray NASAL BID 07/11/19 busPIRone [Buspar] 15 mg PO 4X/DAY 07/11/19 Lisinopril [Zestril] 10 mg PO DAILY #30 tab 07/12/19 The following prescriptions were given: Lisinopril [Zestril] 10 mg PO DAILY #30 tab Transmission Status: Pending to [facility]30 Primary Care Physician: Pato Suarez MD [Primary Care Provider] - Please follow up with your Primary Care Physician in: 1-2 weeks Test Results: Test results from this visit will be discussed in further detail at your follow-up appointment, if applicable. Please Follow Up With: Mohamud Brock MD When: as directed Proposed Discharge Date: 07/12/19
--- NOTE | 2019-07-12 12:51 | PCM.DC.SUM ---
<Praful Glynn - Last Filed: 07/12/19 12:51> Discharge Date and Diagnosis Date of Admission: 07/11/19 Date of Discharge: 07/12/19 - Primary Discharge Diagnosis Active and Suspected Problems Chest pain - musculoskeletal HTN Anxiety Hx Right sided vestibular neuroma - Secondary Discharge Diagnosis Chronic Problems Right sided vestibular neuroma (Chronic) Anxiety (Chronic) Hospital Course and Treatment Imaging Results: 07/12/19 05:55 Nuclear Stress Test - Treadmmn [FL] Routine RAD/Chest 1 View (Portable) IMPRESSION: Normal x-ray examination of the chest. Stress Test: Conclusion: Exercise myocardial perfusion stress test with mild anterior ischemia. Nonsustained ventricular tachycardia noted. Preserved ejection fraction. Consults: Vinod - cardiology Operations: None Procedures: Cardiac catheterization, Stress test Summary of Care Provided: Hospital Course: The patient is a 64 year old M with pmhx of vestibular neuroma s/p gamma knife, anxiety, who presented to the ER with c/o midsternal chest pain. This was described as a sudden onset of midsternal aching associtaed with lightheadedness, diaphoresis, and nausea and occurred about 2 hours after finishing shoveling in his yard. In the ER he had negative EKG, negative troponin, and normal CXR. He was admitted to the PCU on tele for chest pain workup. He had negative troponin x3, negative tele. Stress test the following morning was positive. He was taken by Dr. Brock for a heart cath. This was negative. he was placed on lisinopril for HTN. His chest pain was likely 2/2 musculoskeletal strain from the upper body exertion. He was discharged home in stable condition. He will need follow up with his PCP in 1-2 weeks, follow up with cardiology as directed. This patient was seen by Praful Glynn PA-C under the supervision of Dr. Shepherd [] - Physical Exam General: Alert, Oriented x3, Cooperative HEENT: Atraumatic, PERRLA, EOMI, Normocephalic Neck: Supple, No JVD, Negative Carotid Bruits Lungs: Clear to auscultation, Normal air movement Cardiovascular: Regular rate, No murmurs Abdomen: Bowel Sounds Present, Soft, Non Tender Extremities: No edema, Capillary Refill Less than 3 Seconds Skin: No rashes, No breakdown Musculoskeletal: No Tenderness to Palpation of Joints or Extremities Neurological: Cranial nerves II-XII grossly intact Psych/Mental Status: Normal Affect, Appropriate, Alert and oriented to time, place, person, mood and affect Vital Signs Temp Pulse Resp BP Pulse Ox 98.6 F 72 16 150/78 H 95 07/12/19 10:55 07/12/19 10:55 07/12/19 10:55 07/12/19 10:55 07/12/19 11:02 Oxygen Delivery Method Room Air Weight: 210 lb 12.191 oz Body Mass Index (BMI) 28.5 Intake and Output for Last 24 Hours 07/10/19 07/11/19 07/12/19 23:59 23:59 23:59 Intake Total Output Total Balance 219 / 219 Laboratory Tests Past 24 Hrs 07/11/19 07/11/19 07/11/19 20:45 20:45 23:50 WBC 9.6 RBC 4.17 L Hgb 13.2 Hct 39.3 L MCV 94.2 H MCH 31.7 MCHC 33.6 RDW Std Deviation 43.6 RDW Coeff of Roge 12.6 Plt Count 189 MPV 10.3 Immature Gran % (Auto) 0.300 Neut % (Auto) 75.0 H Lymph % (Auto) 12.7 L Norman % (Auto) 9.4 Eos % (Auto) 2.1 Baso % (Auto) 0.5 Absolute Neuts (auto) 7.2 Absolute Lymphs (auto) 1.22 Nucleated RBC % 0 Sodium 142 Potassium 3.7 Chloride 110 H Carbon Dioxide 25.0 Anion Gap 7 BUN 24 H Creatinine 1.09 Estim Creat Clear Calc 75.15 Est GFR (MDRD) Af Amer 88 Est GFR (MDRD) Non-Af 72 BUN/Creatinine Ratio 22.0 H Glucose 93 Calcium 8.8 Troponin I < 0.015 < 0.015 Triglycerides Cholesterol LDL Cholesterol VLDL Cholesterol HDL Cholesterol 07/12/19 07/12/19 02:45 02:45 WBC RBC Hgb Hct MCV MCH MCHC RDW Std Deviation RDW Coeff of Roge Plt Count MPV Immature Gran % (Auto) Neut % (Auto) Lymph % (Auto) Norman % (Auto) Eos % (Auto) Baso % (Auto) Absolute Neuts (auto) Absolute Lymphs (auto) Nucleated RBC % Sodium Potassium Chloride Carbon Dioxide Anion Gap BUN Creatinine Estim Creat Clear Calc Est GFR (MDRD) Af Amer Est GFR (MDRD) Non-Af BUN/Creatinine Ratio Glucose Calcium Troponin I < 0.015 Triglycerides 103 Cholesterol 169 LDL Cholesterol 109 VLDL Cholesterol 21 HDL Cholesterol 39 L Discharge Diet: Low fat/ Low Cholesterol, 2000 mg Sodium Diet Discharge Activity: Return to Normal Activity Home Medications: Medications to take at Discharge Lorazepam [Ativan] 0.5 mg PO PRN PRN 07/04/18 Tamsulosin HCl [Flomax] 0.4 mg PO DAILY #30 cap.er.24h 07/05/18 Triamcinolone Acetonide [Nasacort Aq Nasal [place]] 1 spray NASAL BID 07/11/19 busPIRone [Buspar] 15 mg PO 4X/DAY 07/11/19 Lisinopril [Zestril] 10 mg PO DAILY #30 tab 07/12/19 Following Prescrptions Were Given to Patient: Lisinopril [Zestril] 10 mg PO DAILY #30 tab Transmission Status: Received by [facility] #30 Primary Care Physician: Pato Suarez MD [Primary Care Provider] - Please follow up with your Primary Care Physician in: 1-2 weeks Please Follow Up With: Mohamud Brock MD When: as directed Disposition: Home Minutes spent on discharge:: 35 Patient Condition:: Stable Medical Necessity - Tobacco Use Smoking Status: Never smoker Meaningful Use Info Meaningful Use Diagnoses (Choose all that apply): None applicable <Sujit Shepherd - Last Filed: 07/12/19 16:29> Discharge Date and Diagnosis - Secondary Discharge Diagnosis Chronic Problems Right sided vestibular neuroma (Chronic) Anxiety (Chronic) Hospital Course and Treatment Summary of Care Provided: This patient was seen in conjunction with Praful COOPER. I have independently interviewed and examined the patient and reviewed pertinent history, examination findings, laboratory and plan of management. I have reviewed the note and agree with the documented findings with the few additional points. In brief, patient is admitted for sudden onset of midsternal chest pain/aching with dizziness and diaphoresis. Patient also history of right-sided vestibular neuroma and follows [facility]. Patient had stress test done which was reported abnormal subsequently patient went for heart cath. Coronary angiogram shows EF 60% with normal LV wall motion and systolic function. No major significant coronary stenosis found but reported normal. Discharge medication reconciliation done. Discharge follow-up instructions completed. Discharge process discussed with the patient and all questions were answered to patient's satisfaction. I have discussed my assessment with Praful COOPER and orders have been reviewed. [] - Physical Exam General: Alert, Oriented x3, Cooperative HEENT: Atraumatic, PERRLA, EOMI, Normocephalic, - - Chronic dizziness and decigrams secondary to right-sided vestibular/caustic neuroma Neck: Supple, No JVD, Negative Carotid Bruits Lungs: Clear to auscultation, Normal air movement, No rhonchi, No wheeze, No rales Cardiovascular: Regular rate, Regular Rhythm, Normal S1, Normal S2, No murmurs Abdomen: Bowel Sounds Present, Soft, Non Tender Extremities: No edema, Capillary Refill Less than 3 Seconds Skin: No rashes, No breakdown Musculoskeletal: No Tenderness to Palpation of Joints or Extremities, Arthritic Changes Neurological: Cranial nerves II-XII grossly intact, Deep Tendon Reflexes 2+/4 and Symmetrical, Neuro grossly intact Psych/Mental Status: Normal Affect, Appropriate Vital Signs Temp Pulse Resp BP Pulse Ox 98.0 F 72 18 110/54 L 96 07/12/19 14:15 07/12/19 14:45 07/12/19 14:45 07/12/19 14:45 07/12/19 14:45 Oxygen Delivery Method Room Air Weight: 210 lb 12.191 oz Body Mass Index (BMI) 28.5 Intake and Output for Last 24 Hours 07/10/19 07/11/19 07/12/19 23:59 23:59 23:59 Intake Total 318.75 / 318.75 Output Total Balance 317.75 / 317.75 Laboratory Tests Past 24 Hrs 07/11/19 07/11/19 07/11/19 20:45 20:45 23:50 WBC 9.6 RBC 4.17 L Hgb 13.2 Hct 39.3 L MCV 94.2 H MCH 31.7 MCHC 33.6 RDW Std Deviation 43.6 RDW Coeff of Roge 12.6 Plt Count 189 MPV 10.3 Immature Gran % (Auto) 0.300 Neut % (Auto) 75.0 H Lymph % (Auto) 12.7 L Norman % (Auto) 9.4 Eos % (Auto) 2.1 Baso % (Auto) 0.5 Absolute Neuts (auto) 7.2 Absolute Lymphs (auto) 1.22 Nucleated RBC % 0 Sodium 142 Potassium 3.7 Chloride 110 H Carbon Dioxide 25.0 Anion Gap 7 BUN 24 H Creatinine 1.09 Estim Creat Clear Calc 75.15 Est GFR (MDRD) Af Amer 88 Est GFR (MDRD) Non-Af 72 BUN/Creatinine Ratio 22.0 H Glucose 93 Calcium 8.8 Troponin I < 0.015 < 0.015 Triglycerides Cholesterol LDL Cholesterol VLDL Cholesterol HDL Cholesterol 07/12/19 07/12/19 02:45 02:45 WBC RBC Hgb Hct MCV MCH MCHC RDW Std Deviation RDW Coeff of Roge Plt Count MPV Immature Gran % (Auto) Neut % (Auto) Lymph % (Auto) Norman % (Auto) Eos % (Auto) Baso % (Auto) Absolute Neuts (auto) Absolute Lymphs (auto) Nucleated RBC % Sodium Potassium Chloride Carbon Dioxide Anion Gap BUN Creatinine Estim Creat Clear Calc Est GFR (MDRD) Af Amer Est GFR (MDRD) Non-Af BUN/Creatinine Ratio Glucose Calcium Troponin I < 0.015 Triglycerides 103 Cholesterol 169 LDL Cholesterol 109 VLDL Cholesterol 21 HDL Cholesterol 39 L Code Visit OBSV E&M: [id number] Observation care discharge
[2019-07-12] MEDS: Fluticasone 0.05% 1 SPRAY NASAL.SRY 2 SPRAY NASAL (13:12)
--- NOTE | 2019-07-12 15:55 | NURSING ---
REVIEWED AND AGREED WITH ZACK Sims'S CHARTING.
== END 2019-07-12 12:30 | disposition home or self-care (01) ==
LOC: ED 20:27 → PCU 22:46
PROVIDERS: Admitting Provider Hospitalist; Emergency Provider Emergency Medicine; Family Provider Family Medicine; PCP Family Medicine; Visit Provider Internal Medicine
DX: R07.89 Other chest pain (principal); R11.0 Nausea; I44.0 Atrioventricular block, first degree; R42 Dizziness and giddiness; F41.9 Anxiety disorder, unspecified; D33.3 Benign neoplasm of cranial nerves; N40.0 Benign prostatic hyperplasia without lower urinary tract symptoms; I45.10 Unspecified right bundle-branch block; I10 Essential (primary) hypertension; R94.39 Abnormal result of other cardiovascular function study; Z87.891 Personal history of nicotine dependence; Z82.49 Family history of ischemic heart disease and other diseases of the circulatory system; Z79.899 Other long term (current) drug therapy
CPT/HCPCS: 36415; 71045; 78452; 80048; 80061; 84484; 85025; 93005; 93017; 93458; 96360; 96361; 99152; 99153; 99218; 99285; A9500; J7030; Q9967; A4216; C1769; C1894; G0378; J2785

== ENCOUNTER 2019-08-23 12:36 | Day surgery (SDC) | payer OTHER, SELFPAY ==
[2019-07-30 12:03] VITALS: BMI 28.6
--- NOTE | 2019-08-22 17:32 | HP.PCM_ITS ---
History and Physical Date of Admission: 08/23/19 Junior Flores 1955 ? ? REFERRING PHYSICIAN: Juvenal Muir (Deondre* ? CHIEF COMPLAINT: Consult ? HPI: The patient is a 64 year old male presents with episode of sudden onset of epigastric abdominal pain and lower substernal chest pain to the ED [facility] 07/11/19. Was concerned for cardiac disease. Underwent cardiac workup - myocardial perfusion test - possible ischemia, had cards cath - LVEF 60% minimal CAD, negative for cardiac etiology of pain Followed by his primary care - US ordered US gallbladder 07/22/19 - fundal stone 2.9 cm, normal gallbladder wall, CBD 0.8 cm Patient states that presently he has no abdominal pain. Had been sharp with severe ache when episodic, no radiation, no N/V. Denies fevers. Denies icterus or jaundice. Tolerating regular diet presently. No abdominal pain today. ? ? PAST MEDICAL HISTORY ? Abnormal TSH ? ? last tsh was normal ? Acoustic neuroma (HCC) 2017 ? Anxiety ? ? Elevated PSA ? ? last psa normal. ? Hypercholesterolemia ? ? patient states no ? Mitral valve prolapse ? ? Recurrent cold sores ? ? PAST SURGICAL HISTORY ? ANKLE SURGERY HX ? 1971 ? COLONOSCOPY ? 2006 ? GAMMA KNIFE 1FX TX DELIVERY ? 07/11/2018 ? HERNIA REPAIR HX ? ? ? in his 20's ? ? Current Outpatient Medications: busPIRone (BUSPAR) 15 mg tablet take 2 tablets every morning,1 tablet in the afternoon and 1 tablet every evening lisinopril (ZESTRIL) 10 mg tablet Take 10 mg by mouth once daily. omeprazole (PRILOSEC) 20 mg capsule Take 1 capsule by mouth daily before break fast. 1/2 hr before meal. nitroglycerin sublingual (NITROQUICK) 0.4 mg SL tablet Dissolve 1 tablet under the tongue every 5 minutes as needed for Chest Pain. ALPRAZolam (XANAX) 0.5 mg tablet 1 tab 30 minutes prior to procedure and repeat once if necessary COMPOUNDED PRESCRIPTION Blood flow screening of carotid.:Carotid doppler valACYclovir (VALTREX) 1 gram tab 2 po once a day prn perflutren lipid microspheres (DEFINITY) 1.1 mg/mL injection (to be provided with echo procedure) Inject 1.3 mL intravenously as directed. tamsulosin ER (FLOMAX) 0.4 mg cap Take 1 capsule by mouth once daily. MULTIVITAMIN WITH MINERALS (MULTIVITAMIN & MINERAL FORMULA ORAL) Take by mouth once daily. triamcinolone acetonide (NASACORT AQ) 55 mcg nasal inhaler Use 1 [place] in the nose twice daily. ?? ALLERGIES: Patient has no known allergies. ? PERSONAL HISTORY: Marital status: Tobacco Use Smoking status: Never Smoker Alcohol use: Yes Comment: wine rarely Drug use: Never ? FAMILY HISTORY ? None Mother ? ? Diabetes Father ? ? Heart Father of [place] at age 69 ? ? ? REVIEW OF SYSTEMS: General: The patient NOTES fatigue, denies weight loss, denies weight gain, denies feeling hot, and denies feelings of cold. Eyes: The patient denies glaucoma, denies eye injury/surgery, wears glasses or contacts. Ear/Nose/Throat: The patient NOTES allergies, denies hayfever, denies ear infections, and denies bloody noses. Cardiovascular: The patient NOTES chest pain, denies heart disease, denies high blood pressure,denies cardiac stent, denies prior heart attack, denies irregular heart beat, denies high cholesterol, denies poor circulation, denies heart failure, other cardiac issues, denies claudication, denies cold feet, denies peripheral arterial stent. Respiratory: The patient denies tuberculosis, denies pneumonia, denies frequent cough, denies pulmonary embolism, denies shortness of breath, and denies coughing up blood. Gastrointestinal: The patient NOTES difficulty swallowing, NOTES acid reflux, denies ulcers, denies vomiting, denies jaundice/hepatitis, NOTES gallbladder problems, denies black or tarry stools, denies hemorrhoids, denies bleeding from rectum, denies diverticulitis, denies constipation, denies diarrhea, denies loss of stool control, and denies hernias. Kidney/Bladder: has had UTI requiring hospitalization in 2018, denies kidney stones, denies bloody urine. Skin: The patient denies a history of skin cancer, denies bleeding/changing moles, and denies a history of skin rash. 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 Psychiatric: The patient denies psychiatric medications, denies depression, and denies voices, denies substance abuse. Endocrine: The patient denies thyroid disorders, denies diabetes, and denies hormonal problems. Hematologic: The patient denies a history of bruising, denies bleeding, and denies anemia, denies blood clots. Infections: The patient NOTES a history of measles and mumps, denies rheumatic fever, and denies sexually transmitted diseases. Musculoskeletal: has intermittent low back pain, denies sciatica, denies knee/foot trouble, denies arthritis, or denies gout. ? PHYSICAL EXAMINATION: General: The patient is 64 year old male, well nourished, well hydrated in no acute distress. The patient is oriented to time, place, and person. VITALS: Blood pressure 112/58, pulse 79, temperature 36.7 ?C (98 ?F), temperature source Temporal Artery, height 182.9 cm (6'), weight 95.7 kg (211 lb), SpO2 97 %. Body mass index is 28.62 kg/m?. Head ? Normocephalic. EOM intact with sclera clear and no icterus noted. Wearing glasses. Mouth with mucus membranes moist. Neck - supple with no jugular venous distention noted. Trachea is midline. No carotid bruits noted. No masses noted. Lungs ? clear to auscultation. Normal breath sounds. No rales/rhonchi/wheezing noted. No labored breathing noted, such as retractions. No cough heard. Heart ? normal S1 and S2 auscultated. No rubs/clicks/murmurs noted. Regular rate. Abdomen ? soft and benign. Normal bowel sounds. No abdominal bruits noted. No distention noted. Extremities ? no calf tenderness noted. No pitting edema noted. Skin ? normal skin integrity. Neurological ? gait normal, no focal deficits noted. Psych ? calm and appropriatete RADIOLOGIC STUDIES: As Noted ? IMPRESSION: cholelithiasis ? PLAN: I have discussed the above with the patient and his who is present with him. I have offered laparoscopic cholecystectomy, possible cholangiograms. I have explained the procedure to the patient. I have counseled the patient as to the risks of the procedure, including but not limited to: infection, bleeding, injury to any blood vessels/nerves, scar tissue, injury to any intraabdominal organs, injury to bowel/bladder, injury to the common bile duct/biliary tree, bile leakage, intraabdominal abscess/bleeding, hernias at incisional sites, wound infections, complications of anesthesia, etc. ? the patient understands. Patient wishes to proceed. I have answered all questions to the patient?s satisfaction and the patient has no further questions. ? . Diagnoses: (R10.13) Epigastric abdominal pain (primary encounter diagnosis) (K80.20) Calculus of gallbladder without cholecystitis without obstruction Return to Clinic: The patient is instructed to follow-up with me after the procedure?
--- NOTE | 2019-08-23 | GALL_PTH ---
PATIENT: MIKEL NIXON LOC: [facility] [place] U#:[id number] AGE/SX: 64/M ROOM: RE08/23/[address]: Dr. Alyce Ellis MD : 1955 BED: DIS: 08/23/2019 SPEC #: [id number] RECD: 08/23/19 16:17 STATUS: ROBI REKamilah #: [id number] NEVAEH: 08/23/19 00:[address]: Alyce Ellis DEPT: SURGICAL PATHOLOGY RECD BY: Jason Clark ENTERED: 08/24/19 09:29 SP TYPE: CLAUDE WORKMAN DR: Dr. Pato Suarez MD Tissues: Gallbladder, NOS Procedures: Surgery Specimen Level III HEADER OPERATION: Laparoscopic cholecystectomy with IOC PRE-OP DIAGNOSIS: Cholelithiasis TISSUE SUBMITTED: Gallbladder MICROSCOPIC DIAGNOSIS Gallbladder, cholecystectomy: Chronic cholecystitis and cholelithiasis. SJ:patricia 08/25/19 MICROSCOPIC DESCRIPTION Slides are reviewed. GROSS DESCRIPTION Received is one container labeled with the patient's name and designated gallbladder. The specimen consists of a gallbladder measuring 6.5 cm in length and 2 cm in diameter. The external surface is pink-goodwin, smooth and glistening for the most part. Focally it is granular, hemorrhagic and contains cautery artifact. The gallbladder contains a small amount of green-yellow mucoid bile and bile sludge. Present in the gallbladder and also in the container are three ovoid to multifaceted, yellowish to greenish-brown stones measuring in aggregate 3.5 x 2 x 1 cm and 0.5 to 3.5 cm in greatest dimension. The mucosa is bile-stained and without any mass lesions. The gallbladder wall measures up to 0.3 cm in thickness. Cab Starter sections from the gallbladder and the cystic duct are submitted in one cassette. / SJ:patricia 08/24/19 TC:3 CPT: 77534
--- NOTE | 2019-08-23 12:51 | EKG12_ITS ---
Test Reason : PRE-OP Blood Pressure : / mmHG Vent. Rate : 061 BPM Atrial Rate : 061 BPM P-R Int : 212 ms QRS Dur : 134 ms QT Int : 436 ms P-R-T Axes : 063 -11 026 degrees QTc Int : 438 ms Sinus rhythm with 1st degree A-V block Right bundle branch block Abnormal ECG Confirmed by KRISH BARILLAS, TRE ([id number]), greeting card editor JOSE A BOOTH ([id number]) on 08/25/2019 2:26:14 PM Referred By: Alyce Ellis Confirmed By:RTE RUTHERFORD MD
[2019-08-23 13:06] VITALS: BP 123/70; PULSE 68; RESP 15; TEMP 37.2; O2SAT 99; BMI 27.5
[2019-08-23] MEDS: Lactated Ringers 1,000 ML 75 ML IV (13:19)
--- NOTE | 2019-08-23 13:33 | PCM.DC.GB ---
Discharge Diet: No Restrictions Discharge Activity: Return to Normal Activity, May not drive while taking narcotic pain medications. Lifting Restrictions: no lifting/pushing/pulling greater than 20 pounds for two weeks Additional Activity Instructions:: Leave dressings in place. May get wet in shower. Do not soak - no tub baths/swimming. If dressings become soiled, may removed - do not replace - leave wound open to air in this case Additional Instructions: Recommended pain medications: take 650 mg acetaminophen (Tylenol), then in three hours take 600 mg ibuprofen (Motrin), then in three hours take 650 mg acetaminophen, then in three hours take 600 mg ibuprofen, and so on for 1-2 days Take narcotic prescription medication for breakthrough pain and at night Allergies/Adverse Reactions: Allergies No Known Allergies Allergy (Verified 08/23/19 12:57) Medications to take at Discharge Lorazepam [Ativan] 0.5 mg PO PRN PRN 07/04/18 Triamcinolone Acetonide [Nasacort Aq Nasal [place]] 1 spray NASAL BID 07/11/19 busPIRone [Buspar] 15 mg PO 4X/DAY 07/11/19 nitroglycerin 0.4 mg sublingual tablet 0.4 mg SUBLINGUAL Q5-15M PRN #25 tab 07/30/19 omeprazole 20 mg capsule,delayed release 20 mg PO DAILY #30 cap 07/30/19 Tamsulosin HCl [Flomax] 0.4 mg PO QHS 08/16/19 Valacyclovir HCl [Valtrex] 2 tab PO DAILY PRN 08/16/19 Primary Care Physician: Pato Suarez MD [Primary Care Provider] - Test Results: Test results from this visit will be discussed in further detail at your follow-up appointment, if applicable.
--- NOTE | 2019-08-23 14:05 | RAD_ITS ---
CLINICAL HISTORY: Male, 64 years old. Cholecystitis PROCEDURE: CHOLANGIOGRAM - intraoperative FLUOROSCOPY TIME (if supplied): (0:10) minutes/seconds Placement of the catheter and the procedure were performed by: Dr. Ellis Fluoroscopy was provided by professor of radiology, who was present in the room time of the procedure. TECHNIQUE: (Single fluoroscopic guided film performed in AP projection during intraoperative cholangiogram FINDINGS:) Single film was obtained during intraoperative cholangiogram demonstrating contrast within the biliary tree as well as emptying into the small bowel. Recommend correlation with surgical notes for more complete information RAD/Cholangiogram/ O R,Initial IMPRESSION: Fluoroscopic guided intraoperative gland cholangiogram Electronically Signed: Wilmar Walden MD at 17:05 EDT , Service support ,
[2019-08-23] MEDS: Bupiv/Epi 0.5% Mpf 30 ML Vial (15:30)
--- NOTE | 2019-08-23 15:42 | PCM.OPRPT ---
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 Appropriate time out protocol was followed. He was then placed in the supine position. The patient was then placed under general endotracheal anesthesia. The abdomen was then prepped with a sterile surgical skin preparation and sterile surgical drapes were placed. The infraumbilical skin fold was grasped with penetrating clamps and the skin and subcutaneous tissues were infiltrated with 0.5% marcaine with epinephrine. A skin incision was then made with a 15 blade scalpel. The anterior abdominal wall was elevated and a Veress needle was carefully inserted into the intraabdominal cavity. It was checked to be in the proper position with a normal saline drop test. A CO2 pneumoperitoneum was then created. Once this was achieved, then the Veress needle was removed and an 11mm trocar was placed in its stead. A 10mm laparoscope was then inserted into the trocar and careful attention was directed to the intraabdominal contents. There was no evidence of injury to any intraabdominal organs from insertion of the Veress needle or the trocar. Under direct visualization, a 5mm subxiphoid trocar and two lateral 5mm right subcostal trocars were placed. The skin and subcutaneous tissues at these sites were infiltrated with 0.5% marcaine with epinephrine prior to placement of these trocars. Attention was then directed to the right upper quadrant of the abdomen. Graspers were placed in the lateral trocars to grasp the distal aspect of the gallbladder and direct it cephalad and to grasp the gallbladder at Dickerson?s pouch and direct it laterally. Dissection then began on the proximal gallbladder continuing down to the area of the triangle of Calot to bluntly dissect out the cystic duct. The neck of the gallbladder was identified and blunt dissection continued to dissect out a segment of the cystic duct. A clip was then placed on the neck of the gallbladder. A small ductotomy was then made. A Ranfac catheter was brought in through a separate skin incision and placed into the cystic duct. An intraoperative cholangiogram was performed under fluoroscopy. The xray revealed no lesions in the common bile duct, arborization of the biliary tree, and good flow into the duodenum. The Ranfac catheter was then removed and two clips were placed proximal to the ductotomy and the cystic duct was then transected. The cystic artery was visualized and bluntly isolated and then two clips were placed proximally and one clip distally and then it was transected between the proximal and distal clips. The gallbladder was then from the liver bed using electrocautery and thus able to be brought out of the umbilical port. It was then forwarded to pathology for analysis. The liver bed was carefully examined. There was no evidence of bile leakage or bleeding. The cystic duct stump and cystic artery stump had their clips intact and there was no evidence of bile leakage or bleeding. The remainder of the abdomen was grossly normal. The CO2 was released and all trocars removed intact. The periumbilical fascia was approximated with a [id number] 0 vicryl suture. All skin incision were closed with 4-0 monocryl in a subdermal fashion. Cavilol and Steristrips were used to reinforce the skin closure. Sterile dressings were applied to all wounds. The patient was extubated and brought to the Recovery Room in stable condition. - Complications none noted - Admit VTE Documentation VTE Present on Admission: Yes VTE Mechan Device Prophylaxis: SCD's
[2019-08-23 16:00] VITALS: BP 123/70; BP 131/62; PULSE 85; RESP 16; TEMP 36.9; O2SAT 99
[2019-08-23 16:15] VITALS: BP 123/70; BP 137/61; PULSE 81; RESP 18; O2SAT 100
[2019-08-23 16:28] VITALS: BP 123/70; BP 143/73; PULSE 79; RESP 18; TEMP 36.5; O2SAT 100
[2019-08-23 17:40] VITALS: BP 123/70; BP 135/76; PULSE 85; RESP 16; TEMP 36.8; O2SAT 98
== END 2019-08-23 17:42 | disposition home or self-care (01) ==
LOC: SDC 12:37 → AC 12:38
PROVIDERS: Family Provider Family Medicine; PCP Family Medicine; Referring Provider Surgery; Visit Provider Surgery
PROC: (CPT 47610; principal; 2019-08-23 13:45)
DX: K80.10 Calculus of gallbladder with chronic cholecystitis without obstruction (principal); D33.3 Benign neoplasm of cranial nerves; F41.9 Anxiety disorder, unspecified; I34.1 Nonrheumatic mitral (valve) prolapse; K21.9 Gastro-esophageal reflux disease without esophagitis; Z79.899 Other long term (current) drug therapy
CPT/HCPCS: 47563; 74300; 76000; 88304; 93005; J7120; J2405

== ENCOUNTER → 2020-09-08 09:05 | Outpatient (CLI) | payer MEDICARE, BC, SELFPAY | PROVIDERS: PCP Family Medicine; Referring Provider Internal Medicine Gastroenterology; Visit Provider Internal Medicine Gastroenterology | DX: Z11.59 Encounter for screening for other viral diseases (principal) | CPT/HCPCS: 87635; C9803; U0003 ==

== ENCOUNTER → 2020-09-18 15:13 | Outpatient (CLI) | payer MEDICARE, BC, SELFPAY ==
[2020-09-18 16:08] LABS: PSA,Total - Annual Screen 1.75 ng/mL (0.00-4.00)
== END ==
PROVIDERS: PCP Family Medicine; Visit Provider Urology
DX: Z12.5 Encounter for screening for malignant neoplasm of prostate (principal)
CPT/HCPCS: 36415; 84153; G0103

== ENCOUNTER 2022-01-10 07:56 | Outpatient (CLI) | payer MEDICARE, BC, SELFPAY ==
[2022-01-10 09:33] LABS: ALB/GLOB Ratio 0.9 RATIO (0.9-2.4); AST(SGOT) 25 U/L (15-37); Alanine Aminotransfer ALT/SGPT 37 U/L (16-61); Albumin, Serum 3.7 g/dL (3.2-5.0); Alkaline Phosphatase 109 U/L (45-117); Anion Gap 4 (5-15); BUN 25 mg/dL (7-18); Calcium,Total 8.9 mg/dL (8.5-10.1); Chloride 107 mmol/L (98-107); Creatinine, Serum 1.04 mg/dL (0.70-1.30); EST Glomerular Filtration Rate 76 mL/min (>60); Est Glom Filt Rate - Afr Amer 92 mL/min (>60); Globulin 3.9 g/dL (2.2-4.2); Glucose 82 mg/dL (74-106); Lipase 59 U/L (73-393); Potassium 3.8 mmol/L (3.5-5.1); Protein, Total 7.6 g/dL (6.4-8.2); Sodium Level 140 mmol/L (136-145)
== END 2022-01-10 23:59 | disposition home or self-care (01) ==
LOC: LAB 07:58
PROVIDERS: PCP Family Medicine; Referring Provider Internal Medicine Gastroenterology; Visit Provider Internal Medicine Gastroenterology
DX: R10.9 Unspecified abdominal pain (principal)
CPT/HCPCS: 36415; 80053; 83690

== ENCOUNTER 2022-01-15 07:10 | Outpatient (CLI) | payer MEDICARE, BC, SELFPAY ==
--- NOTE | 2022-01-15 07:13 | US_ITS ---
EXAM: US ABDOMEN LIMITED, RIGHT UPPER QUADRANT CLINICAL INDICATION: RUQ PAIN TECHNIQUE: Real-time ultrasound of the right upper quadrant with image documentation. This report was created using [employer] report generation technology. COMPARISON: None. FINDINGS: LIVER: Unremarkable. There is normal echotexture. No focal hepatic lesion. No intrahepatic biliary ductal dilation. GALLBLADDER: Cholecystectomy. COMMON BILE DUCT: Unremarkable as visualized. The proximal common bile duct is within normal limits for the patient''s age and prior cholecystectomy. PANCREAS: Unremarkable as visualized. No focal abnormality is demonstrated in the pancreas. No pancreatic ductal dilatation. RIGHT KIDNEY: Simple right renal cyst (inferior) measures up to 5.6 cm. No required imaging follow-up needed given high likelihood of benign nature. There is no hydronephrosis. No shadowing calculus. US/Abdomen Limited IMPRESSION: Cholecystectomy. No biliary dilation or hepatic mass. Electronically Signed: Ricki Oliva MD ([place]oks) at 8:07 EST Reading Location ID and State: [facility] / [place] , Service support ,
== END 2022-01-15 23:59 | disposition home or self-care (01) ==
LOC: US 07:12
PROVIDERS: PCP Family Medicine; Referring Provider Internal Medicine Gastroenterology; Visit Provider Internal Medicine Gastroenterology
DX: R10.11 Right upper quadrant pain (principal); K91.5 Postcholecystectomy syndrome
CPT/HCPCS: 76705

== ENCOUNTER → 2024-08-03 | Outpatient (CLI) | payer MEDICARE, BC, SELFPAY ==
[2024-08-03 12:12] LABS: Absolute Lymphocyte Count 1.72 X10^3/uL (0.83-4.51); Absolute Neutrophil Count 2.9 X10^3/uL (2.0-7.7); Basophil# 0.06 X10^3/uL; Basophil% 1.1 % (0-1); Eosinophil# 0.14 X10^3/uL; Eosinophils% 2.6 % (0-5); Hematocrit 40.7 % (40-54); Hemoglobin 13.2 g/dL (13.0-16.5); Lymphocyte # 1.72 X10^3/ul (0.83-4.51); Lymphocyte % 31.6 % (19-41); Mean Corp Hgb Conc 32.4 g/dL (32-36); Mean Corpuscular Hgb 31.1 pg (27.0-32.0); Mean Platelet Vol. 10.4 fl (6.2-12.0); Monocyte# 0.58 X10^3/uL; Monocyte% 10.7 % (0-10); NRBC Flagged by Analyzer 0 % (0-5); Neutrophil # 2.93 X10^3/uL (2.7-7.7); Neutrophil % 53.8 % (47-70); Platelet Count 204 K/mm3 (150-450); RBC Distribution Width CV 12.9 % (11.6-14.6); RBC Distribution Width SD 45.6 fl (35.1-43.9); Red Blood Count 4.24 M/mm3 (4.6-6.2); White Blood Count 5.4 K/mm3 (4.4-11.0)
[2024-08-03 12:33] LABS: AST(SGOT) 19 U/L (15-37); Alanine Aminotransfer ALT/SGPT 26 U/L (16-61); Albumin, Serum 3.8 g/dL (3.2-5.0); Alkaline Phosphatase 102 U/L (45-117); Anion Gap 4 (5-15); BUN 20 mg/dL (7-18); BUN/Creat Ratio 19.2 RATIO (10-20); Calcium,Total 9.7 mg/dL (8.5-10.1); Chloride 108 mmol/L (98-107); Creatinine, Serum 1.04 mg/dL (0.70-1.30); EST Glomerular Filtration Rate 75 mL/min (>60); Est Glom Filt Rate - Afr Amer 91 mL/min (>60); Globulin 3.8 g/dL (2.2-4.2); Glucose 82 mg/dL (74-106); LDH 179 U/L (87-241); Lipase 25 U/L (13-75); Potassium 4.7 mmol/L (3.5-5.1); Protein, Total 7.6 g/dL (6.4-8.2); Sodium Level 138 mmol/L (136-145)
[2024-08-04 15:08] LABS: Endomysial Antibody IgA Negative (Negative); Immunoglobulin A 309 mg/dL (61-437); t-Transglutaminase IgA <2 U/mL (0-3)
== END | disposition home or self-care (01) ==
LOC: LAB 11:04
PROVIDERS: PCP Family Medicine; Referring Provider Student in an Organized Health Care Education/Training Program; Visit Provider Student in an Organized Health Care Education/Training Program
DX: R10.9 Unspecified abdominal pain (principal)
CPT/HCPCS: 36415; 80053; 82784; 83516; 83615; 83690; 85025; 86255

== ENCOUNTER → 2024-08-04 | Outpatient (CLI) | payer MEDICARE, BC, SELFPAY ==
[2024-08-06 19:07] LABS: Calprotectin, Stool 33 ug/g (0-120)
[2024-08-07 00:07] LABS: Pancreatic Elastase, Fecal > 800 (>200)
== END | disposition home or self-care (01) ==
LOC: LABSPEC 10:33
PROVIDERS: PCP Family Medicine; Referring Provider Student in an Organized Health Care Education/Training Program; Visit Provider Student in an Organized Health Care Education/Training Program
DX: R10.9 Unspecified abdominal pain (principal)
CPT/HCPCS: 82653; 83630; 83993

== ENCOUNTER → 2024-09-01 | Outpatient (CLI) | payer MEDICARE, BC, SELFPAY ==
--- NOTE | 2024-09-01 09:37 | NM_ITS ---
CLINICAL: 69-year-old male with history of right upper quadrant pain status post cholecystectomy. RADIONUCLIDE HEPATOBILIARY SCINTIGRAPHY COMPARISON: None available FINDINGS: Following the intravenous administration of 5.7 mCi of 99m Tc Mebrofenin, hepatobiliary images reveal: 1. Relatively prompt and homogeneous radiopharmaceutical concentration is noted by a normal sized liver. No parenchymal defects are identified. 2. Gallbladder activity is not identified during 35 minutes of sequential imaging commensurate with known history of prior cholecystectomy. The patient terminated image acquisition prior to 60 minutes. 3. Small intestinal tract is observed at 18 minutes post radiopharmaceutical administration. 4. Washout of the radiopharmaceutical by the hepatic parenchyma appears qualitatively delayed. NM/Hepatobilliary Imaging IMPRESSION: 1. Nonvisualization of the gallbladder is consistent with prior cholecystectomy. 2. 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 3. Further evaluation of this individual may be undertaken utilizing pre-examination CCK quantitative hepatobiliary scintigraphy to exclude the presence of post cholecystectomy syndrome-Sphincter of Oddi dysfunction. (Bernardino et al, J Nucl Med 33: 1216, 1992). Electronically Signed: Ken Oconnor DO at 9:15 EDT ,
== END | disposition home or self-care (01) ==
LOC: NM 09:36
PROVIDERS: PCP Family Medicine; Referring Provider Student in an Organized Health Care Education/Training Program; Visit Provider Student in an Organized Health Care Education/Training Program
DX: R10.13 Epigastric pain (principal)
CPT/HCPCS: 78226; A9537

== ENCOUNTER → 2025-07-20 | Outpatient (CLI) | payer MEDICARE, BC, SELFPAY ==
[2025-07-20 17:00] LABS: AST(SGOT) 28 U/L (<=37); Alanine Aminotransfer ALT/SGPT 25 U/L (<=46); Albumin, Serum 4.3 g/dL (3.4-4.8); Alkaline Phosphatase 95 U/L (40-129); Anion Gap 11 (5-15); BUN 25 mg/dL (4-19); BUN/Creat Ratio 25.8 RATIO (10-20); CPK Total, Creatine Kinase 171 U/L (24-195); Calcium,Total 9.5 mg/dL (7.6-11.0); Carbon Dioxide 21.7 mmol/L (21.0-32.0); Chloride 106 mmol/L (98-108); Globulin 3.1 g/dL (2.2-4.2); Glucose 93 mg/dL (70-99); Potassium 3.8 mmol/L (3.3-5.1)
[2025-07-20 17:35] LABS: CRP < 3.00 mg/L (0.0-3.0); LDH 210 U/L (87-241)
[2025-07-25 17:08] LABS: Albumin 3.7 g/dL (2.9-4.4); Anti-Parietal Cell AB, QN 1.4 Units (0.0-20.0); Cytoplasmic Ab (C-ANCA) <1:20 titer (Neg:<1:20); Gamma Globulin 1.1 g/dL (0.4-1.8); Immunoglobulin A 304 mg/dL (61-437); Immunoglobulin G 1201 mg/dL (603-1613); Immunoglobulin M 56 mg/dL (20-172); PROEL- TOTAL PROTEIN 6.8 g/dL (6.0-8.5); Perinuclear Ab (P-ANCA) <1:20 titer (Neg:<1:20)
[2025-07-26 09:08] LABS: Anti-Chromatin <0.2 AI (0.0-0.9); Anti-Jo <0.2 AI (0.0-0.9); Anti-dsDNA Ab <1 IU/mL (0-9); Egg, White 0.14 kU/L (Class 0/I); Egg, Whole 0.15 kU/L (Class 0/I); Mussels <0.10 kU/L (Class 0); SCALLOP <0.10 kU/L (Class 0); SESAME SEED <0.10 kU/L (Class 0); SJOGREN'S Anti-SS-A test < 0.2 AI (0.0-0.9); SJOGREN'S Anti-SS-B test 1.2 AI (0.0-0.9); Walnut, (Food) <0.10 kU/L (Class 0)
== END | disposition home or self-care (01) ==
LOC: LAB 15:45
PROVIDERS: PCP Family Medicine; Referring Provider Internal Medicine Gastroenterology; Visit Provider Internal Medicine Gastroenterology
DX: R10.13 Epigastric pain (principal); R19.7 Diarrhea, unspecified
CPT/HCPCS: 36415; 80053; 82085; 82550; 82784; 83516; 83615; 84165; 85652; 86003; 86005; 86037; 86140; 86225; 86235; 86255; 86334; 86340